=== PATIENT | female | born 2000 | race Caucasian/White ===

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

== ENCOUNTER → 2019-03-18 | Outpatient (REF) | payer BC ==
[~2019-03-18] MED LIST changes: +HYDR-4225 PO; +LEV112 PO
[2019-03-18 19:40] LABS: PLATELET COUNT, AUTOMATED 302 K/uL (150-450)
== END ==
PROVIDERS: ATTEND Nurse Practitioner Family
DX: R11.10 Vomiting, unspecified (principal); R10.13 Epigastric pain
CPT/HCPCS: 82040; 82150; 82247; 82310; 82374; 82435; 82565; 82947; 83690; 84075; 84132; 84155; 84295; 84450; 84460; 84520; 85025

== ENCOUNTER → 2019-03-18 | Outpatient (CLI) | payer BC ==
[~2019-03-18] MED LIST changes: +IOPAMIDOL 76% 150 ML INFUS BTL 150 ML ONE
--- NOTE | 2019-03-18 21:17 | RADIOLOGY IMAGING REPORT ---
FACILITY: [facility] PATIENT NAME: Mellisa Jackson : 2000 MR: [id number] V: [id number] EXAM DATE: ORDERING PHYSICIAN: KARLI RACHEL TECHNOLOGIST: Location: [facility] Patient: Mellisa Jackson : 2000 Visit/Account:[id number] Date of Sevice: 03/18/2019 EXAMINATION: CT abdomen and pelvis without and with IV contrast HISTORY: Abdominal pain. Nausea and vomiting. Rule out appendicitis. TECHNIQUE: Axial CT images of the abdomen and pelvis were obtained with IV contrast, with coronal a nd sagittal 2D reconstructed images. One of the following dose optimization techniques was utilized in the performance of this exam: Autom ated exposure control; adjustment of the mA and/or kV according to the patient's size; or use of an i terative reconstruction technique. Specific details can be referenced in the facility's radiology C T exam operational policy. Contrast: 75 mL of IV Isovue-370. COMPARISON: None. FINDINGS: Liver: Negative. Gallbladder and bile ducts: Negative. Spleen: Negative. Pancreas: Negative. Adrenal glands: Negative. Kidneys: Negative. No urinary calculi or hydronephrosis. The kidneys enhance normally. Bowel and peritoneum: The small bowel and colon are normal in caliber, without evidence of obstructi on or any focal inflammatory process. No bowel wall thickening. Unremarkable appendix in the right lo wer abdomen no free fluid or free intraperitoneal air. Pelvic structures: There is a rounded 4.1 x 3.8 cm cystic lesion in the right pelvis, likely yuniel ing from the right ovary. This demonstrates a thin rim of peripheral calcification. No CT evidence of any internal septation or enhancing soft tissue component. The left adnexa is unremarkable by CT. No rmal uterine size and morphology. The urinary bladder is decompressed. Lymph node assessment: Negative. Vessels: Negative. Musculoskeletal: Negative. Body wall: Negative. Lung bases: Negative. IMPRESSION: 1. No CT evidence of acute intra-abdominal pathology. 2. The small bowel and colon are unremarkable by CT, including the appendix. 3. There is a peripherally calcified 4.1 cm cyst in the right pelvis, likely arising from the right o vary. This pattern of calcification is unusual for an ovarian cyst and is of uncertain clinical signi ficance. A cystic ovarian neoplasm is not excluded. Consider gynecologic referral. Follow-up pelvic u ltrasound could be performed for further evaluation. Findings were discussed with KARLI RACHEL at 03/18/2019 9:14 PM. Report Dictated By: Frandy Pickett MD at 03/18/2019 8:49 PM Report E-Signed By: Frandy Pickett MD at 03/18/2019 9:14 PM WSN:[id number]
== END ==
LOC: CT 20:01
PROVIDERS: ATTEND Nurse Practitioner Family
DX: R11.10 Vomiting, unspecified (principal); R10.9 Unspecified abdominal pain; D72.829 Elevated white blood cell count, unspecified
CPT/HCPCS: 74178; Q9967

== ENCOUNTER → 2019-04-09 | Outpatient (CLI) | payer BC ==
[~2019-04-09] MED LIST changes: -IOPAMIDOL 76% 150 ML INFUS BTL 150 ML ONE
--- NOTE | 2019-04-09 14:51 | RADIOLOGY IMAGING REPORT ---
FACILITY: [facility] PATIENT NAME: Mellisa Jackson : 2000 MR: [id number] V: [id number] EXAM DATE: ORDERING PHYSICIAN: ALMAZ FOOTE TECHNOLOGIST: Location: [facility] [place] Patient: Mellisa Jackson : 2000 Visit/Account:[id number] Date of Sevice: 04/09/2019 TRANSVAGINAL NON-OB HISTORY: UNSPECIFIED OVARIAN CYST, RIGHT SIDE TECHNIQUE: Transvaginal ultrasound pelvis. COMPARISON: CT abdomen and pelvis March 18, 2019 FINDINGS: Uterus: ; 6.8 cm length x 2.8 cm AP x 4.5 cm transverse. Myometrium: Unremarkable. Endometrium: There is a 1.06 x 0.56 x 0.43 cm cystic structure in the lower uterine segment. This ab uts the endometrial canal. It is unclear as to whether this is actually within the endometrium or ju st posterior to the endometrium; double thickness 9.2 mm. Cervix: Grossly negative. Ovaries: Right - 4.5 x 4 x 3.2 cm. There is a 4.2 x 3.2 x 3.9 cm cystic structure with a echogenic rim c orresponding to the calcified rim seen on the recent CT scan Left - 3.3 x 2.2 x 1.8 Blood flow is documented in each ovary by duplex Doppler ultrasound. Adnexa: Grossly unremarkable. Free pelvic fluid: Mild adjacent to the right ovary. IMPRESSION: There is a 4.2 x 3.2 x 3.9 cm cystic structure with echogenic rim corresponding to the calcified rim seen on the recent CT scan within the right ovary. This is of uncertain etiology although ovarian ne oplasm is in the differential diagnosis Small cystic structure immediately adjacent to or within the endometrium in the lower uterine segment Report Dictated By: Jahaira Norris MD at 04/09/2019 2:40 PM Report E-Signed By: Jahaira Norris MD at 04/09/2019 2:46 PM WSN:[id number]
== END ==
LOC: RAD 11:46
PROVIDERS: ATTEND Obstetrics & Gynecology
DX: N83.291 Other ovarian cyst, right side (principal)
CPT/HCPCS: 76830